=== PATIENT | female | born 1930 | race Caucasian/White ===

== ENCOUNTER 2018-01-26 04:35 | Emergency (ER) | payer MEDICARE, OTHER, MEDICAID ==
[2018-01-26] MEDS: LIDO:MAALOX 1:1 20 ML SINGLE DOSE. SWSW (05:38)
== END 2018-01-26 06:28 | disposition home or self-care (01) ==
LOC: ER 04:35
DX: J02.8 Acute pharyngitis due to other specified organisms (principal); B97.89 Other viral agents as the cause of diseases classified elsewhere; E03.9 Hypothyroidism, unspecified; G62.9 Polyneuropathy, unspecified; Z88.0 Allergy status to penicillin; Z88.1 Allergy status to other antibiotic agents
CPT/HCPCS: 99284